=== PATIENT | female | born 1965 | race Caucasian/White ===

== ENCOUNTER → 2017-01-24 | Outpatient (CLI) | payer OTHER ==
[~2017-01-24] MED LIST: AMOX-358 PO; HORMONE REPLACEMENT; HYDR-3812 PO; PROG100C6 PO
--- NOTE | 2017-01-24 19:11 | Diagnostic Imaging Report ---
Bilateral screening mammogram The current study was also evaluated with a Computer Aided Detection (CAD) system. Indication: Screening. No current complaints stated on the questionnaire. COMPARISON: 10/20/15. FINDINGS: The breasts are composed of heterogeneously dense parenchyma which may decrease mammographic sensitivity. There are occasional benign-appearing calcifications. Allowing for technique and positional differences, no suspicious change is seen. IMPRESSION: No significant change. ACR BI-RADS Category 2: Benign findings. Result letter will be mailed to the patient. Note: At least 10% of breast cancer is not imaged by mammography. Dictated by: Dictated on workstation # [id number]
== END ==
LOC: RAD 10:36
PROVIDERS: ATTEND Obstetrics & Gynecology
DX: Z12.31 Encounter for screening mammogram for malignant neoplasm of breast (principal)
CPT/HCPCS: 77067

== ENCOUNTER → 2020-03-01 | Outpatient (CLI) | payer OTHER ==
[~2020-03-01] MED LIST changes: +ACHD5005 PO; -HYDR-3812 PO; +PROG100C11 PO; -PROG100C6 PO
--- NOTE | 2020-03-01 11:27 | Diagnostic Imaging Report ---
HISTORY: Right hip pain. TECHNIQUE: 2 views of the right hip COMPARISON: None FINDINGS: No acute fracture or dislocation is seen in the right hip. Alignment appears normal. Joint spaces are preserved. IMPRESSION: 1. No acute osseous abnormality is seen in the right hip. Dictated by: Dictated on workstation # [id number]
== END ==
LOC: RAD 09:18
PROVIDERS: ATTEND Family Medicine
DX: M25.551 Pain in right hip (principal)
CPT/HCPCS: 73502

== ENCOUNTER → 2020-03-07 | Outpatient (CLI) | payer OTHER ==
--- NOTE | 2020-03-08 09:22 | Diagnostic Imaging Report ---
INDICATION: Routine screening. COMPARISON: 01/24/2017 and 10/20/2015. TECHNIQUE: 2D and 3D bilateral screening mammography was performed with CAD. FINDINGS: Scattered fibroglandular densities are identified bilaterally. The parenchymal pattern is stable. No mass or malignant appearing microcalcifications are seen. There are benign calcifications bilaterally. The axillae are unremarkable. IMPRESSION: No mammographic features suspicious for malignancy are identified. ACR BI-RADS Category 2: Benign findings. Result letter will be mailed to the patient. Note: At least 10% of breast cancer is not imaged by mammography. Dictated by: Dictated on workstation # [id number]
== END ==
LOC: RAD 15:40
PROVIDERS: ATTEND Obstetrics & Gynecology
DX: Z12.31 Encounter for screening mammogram for malignant neoplasm of breast (principal)
CPT/HCPCS: 77063; 77067

== ENCOUNTER 2020-06-06 09:15 | Outpatient (RCR) | payer OTHER | END 2020-06-06 11:59 | disposition home or self-care (01) | PROVIDERS: ATTEND Family Medicine | DX: M25.551 Pain in right hip (principal); M79.651 Pain in right thigh ==

== ENCOUNTER 2020-09-07 08:33 | Outpatient (RCR) | payer OTHER | END 2020-09-08 | disposition home or self-care (01) | PROVIDERS: ATTEND Family Medicine | DX: M25.551 Pain in right hip (principal); M79.651 Pain in right thigh; M25.561 Pain in right knee; M79.672 Pain in left foot; F32.9 Major depressive disorder, single episode, unspecified; Z87.828 Personal history of other (healed) physical injury and trauma; Z91.09 Other allergy status, other than to drugs and biological substances ==

== ENCOUNTER → 2020-12-01 | Outpatient (CLI) | payer OTHER ==
--- NOTE | 2020-12-01 15:39 | Diagnostic Imaging Report ---
INDICATION: LUMBAR RADICULOPATHY. LEFT HIP PAIN. LOWER BACK PAIN X6 MONTHS. TECHNIQUE: AP, Lateral and Spot imaging of the lumbar spine CORRELATION STUDY: None FINDINGS: The lumbar spinal curvature is straightened. The lumbar alignment otherwise unremarkable. Vertebral body heights and disc spaces are maintained. No fracture or malalignment. SI joints unremarkable. IMPRESSION: No radiographic evidence for acute bony abnormality of the lumbar spine. Dictated by: Dictated on workstation # [id number]
== END ==
LOC: RAD 15:20
PROVIDERS: ATTEND Family Medicine
DX: M54.16 Radiculopathy, lumbar region (principal)
CPT/HCPCS: 72100

== ENCOUNTER → 2020-12-14 | Outpatient (CLI) | payer OTHER ==
--- NOTE | 2020-12-14 14:27 | Diagnostic Imaging Report ---
CLINICAL INDICATION: Patient with low back pain and right hip pain. No exact known injury. EXAM: MRI of the lumbar spine performed without IV contrast. Sagittal T2, sagittal T1, sagittal T2 fat-sat, and axial T2. COMPARISON: X-ray of the lumbar spine dated 12/01/2020. FINDINGS: There is no acute lumbar spine fracture or dislocation. There are Modic type I degenerative signal changes involving the anterior aspect of the T12-L1 level and left side of the L5-S1 endplates. There are likely small intraosseous hemangiomas within the L1, L3, and L4 vertebra. There is no significant paraspinal soft tissue abnormality. The visualized portions of the distal thoracic spinal cord, conus medullaris, and cauda equina nerve roots are unremarkable. The conus medullaris tip is seen at the L1-L2 intervertebral level. There is no significant paraspinal soft tissue abnormality. There are small spurs involving the lumbar spine. T12-L1: Unremarkable. L1-L2: Unremarkable. L2-L3: There is a small annular tear involving the extraforaminal aspect of the right side of the disk with small broad disk bulge noted. Otherwise this level is unremarkable. L3-L4: There is no significant central spinal canal or neural foramen narrowing. L4-L5: There are low T2 degenerative disk signal changes and a small central posterior disk herniation. There is no significant central spinal canal or neural foramen narrowing. L5-S1: There is mild bilateral facet arthropathy. There is no significant central spinal canal or neural foramen narrowing. IMPRESSION: 1: There is a small far right lateral disk bulge at the L2-L3 level with associated annular tear. 2: There is a small L4-L5 posterior disk herniation. There is no significant central spinal canal or neural foramen narrowing. Dictated by: Dictated on workstation # [id number]
== END ==
LOC: RAD 11:00
PROVIDERS: ATTEND Family Medicine
DX: M51.16 Intervertebral disc disorders with radiculopathy, lumbar region (principal); M51.86 Other intervertebral disc disorders, lumbar region
CPT/HCPCS: 72148

== ENCOUNTER 2021-04-11 09:00 | Outpatient (RCR) | payer OTHER | END 2021-04-24 | disposition home or self-care (01) | PROVIDERS: ATTEND Physical Medicine & Rehabilitation | DX: M51.36 Other intervertebral disc degeneration, lumbar region (principal) ==

== ENCOUNTER → 2022-08-20 | Outpatient (CLI) | payer OTHER ==
--- NOTE | 2022-08-20 12:29 | Diagnostic Imaging Report ---
INDICATION: Routine screening. COMPARISON: 03/07/2020 and 01/24/2017. TECHNIQUE: 2D and 3D bilateral screening mammography was performed with CAD. FINDINGS: Scattered fibroglandular densities are identified bilaterally. The parenchymal pattern is stable. No mass or malignant-appearing microcalcifications are seen. The axillae are unremarkable. IMPRESSION: No mammographic features suspicious for malignancy are identified. ACR BI-RADS Category 1: Negative. Result letter will be mailed to the patient. Note: At least 10% of breast cancer is not imaged by mammography. Dictated by: Dictated on workstation # [id number]
== END ==
LOC: RAD 11:00
PROVIDERS: ATTEND Obstetrics & Gynecology
DX: Z12.31 Encounter for screening mammogram for malignant neoplasm of breast (principal)
CPT/HCPCS: 77063; 77067

== ENCOUNTER → 2022-11-06 | Outpatient (CLI) | payer OTHER ==
--- NOTE | 2022-11-06 17:54 | Diagnostic Imaging Report ---
PROCEDURE: MR imaging left lower extremity without contrast. TECHNIQUE: Multiplanar, multisequence non contrast enhanced MR imaging of the left lower extremity was accomplished. INDICATION: 2nd and 3rd toe pain. EXAMINATION: Left lower extremity MRI without contrast 11/06/2022. FINDINGS: There is an effusion at the 1st metatarsal phalangeal joint with no adjacent osseous destruction. A small effusion is also noted along the 2nd and 3rd metatarsal phalangeal joint spaces. There is surrounding soft tissue edema interposed between the distal 1st and 2nd as well as 2nd and 3rd metatarsals which is nonspecific. The underlying osseous structures demonstrate no evidence for fracture or dislocations. There is mild T2 hyperintensity within the 2nd metatarsal head and adjacent base of the proximal 2nd phalanx best seen on the sagittal STIR sequence. Visualized tendons intact. IMPRESSION: 1. Minimal T2 hyperintensity at the 2nd metatarsophalangeal joint. This is nonspecific and could be due to bone contusion. No definite fracture lines appreciated. Correlative radiographs may be useful. An inflammatory or infectious process not excluded given small amount of joint fluid present. Correlate with patient's symptoms. 2. Nonspecific small joint effusions also seen at the 1st and 3rd metatarsophalangeal joint spaces. No associated destructive abnormality in the adjacent osseous structures. 3. Subcutaneous edema surrounding the 2nd and 3rd distal metatarsals which could be reactive. Myositis is another possibility. Dictated by: Dictated on workstation # [id number]
== END ==
LOC: RAD 13:50
PROVIDERS: ATTEND Podiatrist Foot & Ankle Surgery
DX: S92.325D Nondisplaced fracture of second metatarsal bone, left foot, subsequent encounter for fracture with routine healing (principal); R60.0 Localized edema; M71.572 Other bursitis, not elsewhere classified, left ankle and foot; X58.XXXD Exposure to other specified factors, subsequent encounter

== ENCOUNTER 2023-01-11 11:09 | Outpatient (RCR) | payer OTHER | END 2023-01-13 | disposition home or self-care (01) | PROVIDERS: ATTEND Orthopaedic Surgery Sports Medicine | DX: M25.551 Pain in right hip (principal); Z98.890 Other specified postprocedural states ==

== ENCOUNTER 2023-02-12 08:33 | Outpatient (RCR) | payer OTHER | END 2023-02-13 | disposition home or self-care (01) | PROVIDERS: ATTEND Orthopaedic Surgery Sports Medicine | DX: M67.951 Unspecified disorder of synovium and tendon, right thigh (principal); Z98.890 Other specified postprocedural states ==

== ENCOUNTER 2023-02-15 09:04 | Outpatient (RCR) | payer OTHER | END 2023-03-15 | disposition home or self-care (01) | PROVIDERS: ATTEND Orthopaedic Surgery Sports Medicine | DX: M67.951 Unspecified disorder of synovium and tendon, right thigh (principal); Z98.890 Other specified postprocedural states ==

== ENCOUNTER 2023-03-28 10:13 | Outpatient (RCR) | payer OTHER | END 2023-04-15 | disposition home or self-care (01) | PROVIDERS: ATTEND Orthopaedic Surgery Sports Medicine | DX: M67.951 Unspecified disorder of synovium and tendon, right thigh (principal); Z98.890 Other specified postprocedural states ==

== ENCOUNTER 2023-04-17 08:00 | Outpatient (RCR) | payer OTHER | END 2023-05-16 | disposition home or self-care (01) | PROVIDERS: ATTEND Orthopaedic Surgery Sports Medicine | DX: M67.951 Unspecified disorder of synovium and tendon, right thigh (principal); Z98.890 Other specified postprocedural states ==

== ENCOUNTER → 2023-07-04 | Outpatient (CLI) | payer OTHER ==
--- NOTE | 2023-07-04 09:21 | Diagnostic Imaging Report ---
INDICATION: Right knee pain. FINDINGS: 4 views of the right knee shows no fracture, dislocation or pathologic effusion. Joint space is well-maintained. Articular surfaces are smooth. IMPRESSION: Negative right knee. Dictated by: Dictated on workstation # [id number]
== END ==
LOC: ORTHO 08:17
PROVIDERS: ATTEND Orthopaedic Surgery
DX: M25.561 Pain in right knee (principal)
CPT/HCPCS: 73564; G0463; 99203